=== PATIENT | female | born 1930 | race Caucasian/White ===

== ENCOUNTER 2017-01-01 13:23 | Inpatient (IN) | payer OTHER, BC ==
[2017-01-01] VITALS (8 sets, daily range): BP systolic 112–188; BP diastolic 52–77
[~2017-01-01] VITALS: Ht 152.4 cm; Wt 43.1 kg
[~2017-01-01 13:23] MED LIST: ALPRAZOLAM0.25 MG PO; ARICEPT10 MG PO; ARICEPT5 MG PO; ASACOL400 MG PO; ASPIRIN81 M1 PO; ATORVASTATIN CA20 MG PO; Antivert PO; BENGAY ULTRA S113 GM TP; COUMADIN,JANTOVE2 MG PO; COUMADIN2 MG PO; COUMADIN3 M1 PO; COUMADIN3 MG PO; COZAAR50 MG PO; DEPO ESTRADIO5 MG/ML; DIOVAN160 MG PO; FUROSEMIDE40 MG PO; K-DUR20 MEQ PO; KLOR-CON M2020 MEQ PO; LANOXIN125 MCG PO; LIPITOR; LIPITOR10 MG PO; LIPITOR20 MG PO; LO-DOSE ASPIRIN81 M1 PO; NORVASC5 MG PO; OCUVITE PRESER1 EACH PO; PREMARIN0.625 MG PO; TRAMADOL HCL50 MG PO; VITAMIN B12-FO1 EACH PO; VITAMIN D31000 UNI2 PO; WYGESIC,DARV1 TABLET PO; XANAX0.25 MG PO
[2017-01-01 15:07] LABS: HEMATOCRIT 19.9 % (36.0-46.0); MCH 27.9 PG (29.0-34.0); MCHC 32.2 G/DL (30.0-36.0); MCV 86.9 FL (83-99); MEAN PLAT.VOLUME 9.3 uM^3 (9.5-12.4); PLATELET COUNT 286 K/uL (156-360); RBC DIS.WIDTH-CV 16.9 % (11.8-14.6); RBC DIS.WIDTH-SD 52.9 % (39-53); RED BLOOD COUNT 2.29 M/uL (3.80-5.20); WHITE BLOOD COUNT 6.1 K/uL (4.1-10.2)
[2017-01-01 15:08] LABS: CHLORIDE 102 mEq/L (99-109); POTASSIUM 4.3 mEq/L (3.7-5.4); SODIUM 136 mEq/L (136-147)
[2017-01-01 15:10] LABS: GLUCOSE 154 mg/dL (70-99); PROTHROMBIN TIME 119.9 (9.2-11.2); PTT 46.9 (25-32)
[2017-01-01 15:11] LABS: ANION GAP 12 MEQ/L (2-14); INTER. NORMALIZED RATIO 10.9
[2017-01-01 15:12] LABS: TOTAL BILIRUBIN 0.4 mg/dL (0.0-1.0)
[2017-01-01 15:14] LABS: ALKALINE PHOSPHATASE 81 IU/L (3-129); GFR ESTIMATE (CALCULATED) 50 mL/min/
[2017-01-01 15:15] LABS: UREA NITROGEN (BUN) 27 mg/dL (9-23)
[2017-01-01] MEDS ORDERED: DIGITEK125 MC2 PO (17:05)
[2017-01-01] MEDS ORDERED: PENTASA250 MG PO (17:06)
[2017-01-01] MEDS ORDERED: SERTRALINE HCL25 MG PO (17:07)
[2017-01-01] MEDS ORDERED: COUMADIN2 MG PO (17:08)
[2017-01-01] MEDS ORDERED: WARFARIN SODIUM6 MG PO (17:09)
[2017-01-01] MEDS ORDERED: WARFARIN SODIUM5 MG PO (17:09)
[2017-01-01] MEDS ORDERED: KEFLEX500 MG PO (17:10)
[2017-01-01] MEDS ORDERED: TYLENOL PM1 CAPLET PO (17:11)
[2017-01-02] VITALS (8 sets, daily range): BP systolic 139–192; BP diastolic 58–81
[2017-01-02 03:21] LABS: HEMATOCRIT 24.6 % (36.0-46.0); MCH 28.3 PG (29.0-34.0); MCHC 33.3 G/DL (30.0-36.0); MCV 84.8 FL (83-99); MEAN PLAT.VOLUME 9.3 uM^3 (9.5-12.4); NRBC (%) 0.3 /100 WBC (0-0); PLATELET COUNT 207 K/uL (156-360); RBC DIS.WIDTH-CV 16.7 % (11.8-14.6); RBC DIS.WIDTH-SD 51.8 % (39-53); WHITE BLOOD COUNT 6.8 K/uL (4.1-10.2)
[2017-01-02 03:34] LABS: INTER. NORMALIZED RATIO 1.5; PROTHROMBIN TIME 15.1 (9.2-11.2)
[2017-01-02 08:52] LABS: HEMATOCRIT 27.9 % (36.0-46.0); MCH 29.1 PG (29.0-34.0); MCHC 33.7 G/DL (30.0-36.0); MCV 86.4 FL (83-99); MEAN PLAT.VOLUME 9.4 uM^3 (9.5-12.4); NRBC (%) 0.4 /100 WBC (0-0); PLATELET COUNT 243 K/uL (156-360); RBC DIS.WIDTH-CV 17.2 % (11.8-14.6); RBC DIS.WIDTH-SD 54.4 % (39-53); RED BLOOD COUNT 3.23 M/uL (3.80-5.20); WHITE BLOOD COUNT 7.8 K/uL (4.1-10.2)
[2017-01-02 09:17] LABS: INTER. NORMALIZED RATIO 1.2; PROTHROMBIN TIME 12.6 (9.2-11.2)
[2017-01-02 09:18] LABS: ANION GAP 13 MEQ/L (2-14); CHLORIDE 108 MEQ/L (99-109); GFR ESTIMATE (CALCULATED) 56 mL/min/; GLUCOSE 86 mg/dL (70-99); POTASSIUM 4.4 MEQ/L (3.7-5.4); SAMPLE HEMOLYSIS CHECK 0; SAMPLE ICTERIC CHECK 0; SAMPLE LIPEMIA CHECK 0; SODIUM 141 MEQ/L (136-147); UREA NITROGEN (BUN) 21 mg/dL (9-23)
[2017-01-02 18:10] LABS: EOSINOPHIL (%) 0.3 % (0-5); HEMATOCRIT 28.2 % (36.0-46.0); IMMATURE GRANULOCYTE (%) 0.4 % (0.0-0.7); INSTRUMENT ABS NEUTROPHIL CT 7.1 K/uL; LYMPHOCYTE COUNT 1.4 K/uL (1.0-2.8); MCH 28.8 PG (29.0-34.0); MCHC 33.3 G/DL (30.0-36.0); MCV 86.5 FL (83-99); MEAN PLAT.VOLUME 9.2 uM^3 (9.5-12.4); MONOCYTE (%) 11.9 % (3-12); MONOCYTE COUNT 1.2 K/uL (0-0.8); NEUTROPHIL (%) 72.5 % (45-76); NEUTROPHIL COUNT 7.1 K/uL (1.8-6.4); NRBC (%) 0.4 /100 WBC (0-0); PLATELET COUNT 255 K/uL (156-360); RBC DIS.WIDTH-CV 17.3 % (11.8-14.6); RBC DIS.WIDTH-SD 53.8 % (39-53); RED BLOOD COUNT 3.26 M/uL (3.80-5.20); WHITE BLOOD COUNT 9.8 K/uL (4.1-10.2)
[2017-01-03] VITALS (7 sets, daily range): BP systolic 127–186; BP diastolic 55–79
[2017-01-03 07:09] LABS: EOSINOPHIL (%) 0.4 % (0-5); HEMATOCRIT 28.2 % (36.0-46.0); IMMATURE GRANULOCYTE (%) 0.5 % (0.0-0.7); IMMATURE GRANULOCYTE COUNT 0.1 K/uL; LYMPHOCYTE COUNT 1.7 K/uL (1.0-2.8); MCH 27.8 PG (29.0-34.0); MCHC 31.9 G/DL (30.0-36.0); MEAN PLAT.VOLUME 9.1 uM^3 (9.5-12.4); MONOCYTE (%) 11.2 % (3-12); MONOCYTE COUNT 1.2 K/uL (0-0.8); NEUTROPHIL (%) 72.3 % (45-76); NRBC (%) 0.3 /100 WBC (0-0); PLATELET COUNT 276 K/uL (156-360); RBC DIS.WIDTH-CV 17.1 % (11.8-14.6); RED BLOOD COUNT 3.24 M/uL (3.80-5.20); WHITE BLOOD COUNT 11.1 K/uL (4.1-10.2)
[2017-01-04 05:37] LABS: HEMATOCRIT 24.7 % (36.0-46.0); MCH 28.3 PG (29.0-34.0); MCHC 32.4 G/DL (30.0-36.0); MCV 87.3 FL (83-99); MEAN PLAT.VOLUME 9.6 uM^3 (9.5-12.4); PLATELET COUNT 242 K/uL (156-360); RBC DIS.WIDTH-CV 16.8 % (11.8-14.6); RBC DIS.WIDTH-SD 52.5 % (39-53); RED BLOOD COUNT 2.83 M/uL (3.80-5.20); WHITE BLOOD COUNT 6.5 K/uL (4.1-10.2)
[2017-01-04 06:03] LABS: ANION GAP 9 MEQ/L (2-14); CHLORIDE 100 MEQ/L (99-109); GFR ESTIMATE (CALCULATED) > 59 mL/min/; GLUCOSE 79 mg/dL (70-99); INTER. NORMALIZED RATIO 1.2; POTASSIUM 3.4 MEQ/L (3.7-5.4); PTT 30.1 (25-32); SAMPLE HEMOLYSIS CHECK 1; SAMPLE ICTERIC CHECK 0; SAMPLE LIPEMIA CHECK 0; SODIUM 136 MEQ/L (136-147); UREA NITROGEN (BUN) 10 mg/dL (9-23)
[2017-01-04 08:49] VITALS: BP 163/72
[2017-01-04 11:15] VITALS: BP 122/61
[2017-01-04 14:13] LABS: HEMATOCRIT 27.7 % (36.0-46.0); MCV 88.5 FL (83-99)
[2017-01-04 16:15] VITALS: BP 142/74
[2017-01-04 19:15] VITALS: BP 136/84
[2017-01-05] VITALS: BP 134/60
[2017-01-05 04:24] VITALS: BP 129/60
[2017-01-05 08:20] VITALS: BP 173/70
[2017-01-05] MEDS ORDERED: ELIQUIS2.5 MG PO (12:36)
[2017-01-05 13:10] VITALS: BP 150/67
== END 2017-01-05 16:16 | disposition home or self-care (01) | DRG 356 ==
LOC: EME 13:23 → 4EAST 17:01 → EDOF 17:01 → 4EAST 18:02
PROVIDERS: Emergency Medicine; Family Medicine; Hospitalist; Internal Medicine
DX: K92.1 Melena (principal); T45.515A Adverse effect of anticoagulants, initial encounter; D62 Acute posthemorrhagic anemia; E87.2 Acidosis; J96.01 Acute respiratory failure with hypoxia; J90 Pleural effusion, not elsewhere classified; E87.70 Fluid overload, unspecified; I48.1 Persistent atrial fibrillation; E11.9 Type 2 diabetes mellitus without complications; E78.5 Hyperlipidemia, unspecified; I10 Essential (primary) hypertension; I25.10 Atherosclerotic heart disease of native coronary artery without angina pectoris; F03.90 Unspecified dementia, unspecified severity, without behavioral disturbance, psychotic disturbance, mood disturbance, and anxiety; I35.0 Nonrheumatic aortic (valve) stenosis; K80.10 Calculus of gallbladder with chronic cholecystitis without obstruction; I73.9 Peripheral vascular disease, unspecified; L98.9 Disorder of the skin and subcutaneous tissue, unspecified; I25.2 Old myocardial infarction; Z79.01 Long term (current) use of anticoagulants; Z79.82 Long term (current) use of aspirin; Z85.038 Personal history of other malignant neoplasm of large intestine; Z86.718 Personal history of other venous thrombosis and embolism; Z95.0 Presence of cardiac pacemaker; Z95.1 Presence of aortocoronary bypass graft
CPT/HCPCS: 71010; 73502; 74177; 80048; 80053; 83605; 85014; 85018; 85025; 85027; 85610; 85730; 86900; 86901; 86920; 88305; 93005; 94640; 94640 76; 94799; 99202; 99281; 99285; A6260; C9113; J3430; J7030; J7050; P9016; P9017

== ENCOUNTER 2017-05-22 17:09 | Emergency (ER) | payer OTHER, BC ==
[~2017-05-22] VITALS: Ht 157.5 cm; Wt 44.1 kg
[~2017-05-22 17:09] MED LIST changes: +DIGITEK125 MC2 PO; +ELIQUIS2.5 MG PO; +KEFLEX500 MG PO; +PENTASA250 MG PO; +SERTRALINE HCL25 MG PO; +TYLENOL PM1 CAPLET PO; +WARFARIN SODIUM5 MG PO; +WARFARIN SODIUM6 MG PO
[2017-05-22 18:43] LABS: HEMATOCRIT 37.3 % (36.0-46.0); MCH 29.4 PG (29.0-34.0); MCHC 33.5 G/DL (30.0-36.0); MCV 87.8 FL (83-99); MEAN PLAT.VOLUME 10.2 uM^3 (9.5-12.4); PLATELET COUNT 178 K/uL (156-360); RBC DIS.WIDTH-CV 14.6 % (11.8-14.6); RBC DIS.WIDTH-SD 47.5 % (39-53); RED BLOOD COUNT 4.25 M/uL (3.80-5.20); WHITE BLOOD COUNT 5.9 K/uL (4.1-10.2)
[2017-05-22 18:51] LABS: INTER. NORMALIZED RATIO 1.2; PROTHROMBIN TIME 13.5 SEC (10.2-12.9)
[2017-05-22 18:53] LABS: PTT 37.1 SEC (25-37)
[2017-05-22] MEDS ORDERED: TYLENOL WITH C1 EACH PO (22:00)
[2017-05-22 22:11] VITALS: BP 134/70
== END 2017-05-22 22:16 | disposition home or self-care (01) ==
LOC: EME 17:09
PROVIDERS: Emergency Medicine
PROC: 0HQLXZZ Repair Left Lower Leg Skin, External Approach (ICD-10-PCS; principal; 2017-05-22)
DX: L76.22 Postprocedural hemorrhage of skin and subcutaneous tissue following other procedure (principal); Z79.82 Long term (current) use of aspirin; Z79.01 Long term (current) use of anticoagulants; J44.9 Chronic obstructive pulmonary disease, unspecified; I10 Essential (primary) hypertension; I25.2 Old myocardial infarction; Z85.038 Personal history of other malignant neoplasm of large intestine; F32.9 Major depressive disorder, single episode, unspecified; F41.9 Anxiety disorder, unspecified; Z95.1 Presence of aortocoronary bypass graft; Z95.0 Presence of cardiac pacemaker; Z88.2 Allergy status to sulfonamides; Z88.5 Allergy status to narcotic agent; Z87.891 Personal history of nicotine dependence
CPT/HCPCS: 85027; 85610; 85730; 99281; 99285

== ENCOUNTER 2017-05-22 23:03 | Emergency (ER) | payer OTHER, BC ==
[~2017-05-22] VITALS: Ht 149.9 cm; Wt 48.6 kg
[~2017-05-22 23:03] MED LIST changes: +TYLENOL WITH C1 EACH PO
[2017-05-22 23:37] LABS: EOSINOPHIL (%) 2.3 % (0-5); EOSINOPHIL COUNT 0.2 K/uL (0-0.3); IMMATURE GRANULOCYTE (%) 0.2 % (0.0-0.7); INSTRUMENT ABS NEUTROPHIL CT 4.1 K/uL; LYMPHOCYTE COUNT 1.7 K/uL (1.0-2.8); MCH 29.2 PG (29.0-34.0); MCHC 33.2 G/DL (30.0-36.0); MCV 87.9 FL (83-99); MONOCYTE (%) 11.1 % (3-12); MONOCYTE COUNT 0.7 K/uL (0-0.8); NEUTROPHIL (%) 60.7 % (45-76); NEUTROPHIL COUNT 4.1 K/uL (1.8-6.4); PLATELET COUNT 203 K/uL (156-360); RBC DIS.WIDTH-CV 14.8 % (11.8-14.6); RBC DIS.WIDTH-SD 47.5 % (39-53); RED BLOOD COUNT 3.87 M/uL (3.80-5.20); WHITE BLOOD COUNT 6.7 K/uL (4.1-10.2)
[2017-05-22 23:45] LABS: INTER. NORMALIZED RATIO 1.2; PROTHROMBIN TIME 13.3 SEC (10.2-12.9)
[2017-05-22 23:48] LABS: PTT 35.6 SEC (25-37)
[2017-05-22 23:51] LABS: CHLORIDE 105 mEq/L (99-109); POTASSIUM 3.7 mEq/L (3.7-5.4); SODIUM 142 mEq/L (136-147)
[2017-05-22 23:52] LABS: MAGNESIUM 2.2 mg/dL (1.3-2.7)
[2017-05-22 23:54] LABS: GLUCOSE 113 mg/dL (70-99)
[2017-05-22 23:55] LABS: ANION GAP 9 MEQ/L (2-14)
[2017-05-22 23:56] LABS: TOTAL BILIRUBIN 0.3 mg/dL (0.0-1.0)
[2017-05-22 23:57] LABS: ALKALINE PHOSPHATASE 86 IU/L (3-129); GFR ESTIMATE (CALCULATED) 55 mL/min/
[2017-05-22 23:58] LABS: TROP-I INTERPRETATION NEGATIVE; TROPONIN-I 0.03 ng/mL (0.0-0.30)
[2017-05-22 23:59] LABS: UREA NITROGEN (BUN) 18 mg/dL (9-23)
[2017-05-23 00:08] LABS: DIGOXIN 0.4 ng/mL (0.8-2.0)
[2017-05-23 09:35] VITALS: BP 94/84
== END 2017-05-23 09:38 | disposition home or self-care (01) ==
LOC: EME 23:03
PROVIDERS: Emergency Medicine
DX: L76.21 Postprocedural hemorrhage of skin and subcutaneous tissue following a dermatologic procedure (principal); Z98.890 Other specified postprocedural states; C44.709 Unspecified malignant neoplasm of skin of left lower limb, including hip; Z79.01 Long term (current) use of anticoagulants; Z79.82 Long term (current) use of aspirin; I10 Essential (primary) hypertension; Z95.0 Presence of cardiac pacemaker; Z95.1 Presence of aortocoronary bypass graft; Z85.038 Personal history of other malignant neoplasm of large intestine; Z87.891 Personal history of nicotine dependence
CPT/HCPCS: 80053; 80162; 83735; 83880; 84484; 85025; 85610; 85730; 99281; 99284